=== PATIENT | male | born 1965 | race Caucasian/White ===

== ENCOUNTER 2019-01-12 13:26 | Emergency (ER) | payer BC ==
[2019-01-12 13:40] VITALS: BP 170/105; PULSE 75
[2019-01-12] MEDS ORDERED: Sodium Chloride 0.9% 1,000 ML IV SCH (14:00)
[2019-01-12] MEDS ORDERED: Sodium Chloride 0.9% 10 ML Syringe FLUSH PRN (14:00)
--- NOTE | 2019-01-12 14:33 | CR ---
Chest: Portable view of the chest was obtained. Comparison: Prior chest x-ray of 12/29/15. Heart size and mediastinum are normal. Lungs are clear. Bony structures appear grossly intact. Impression: 1. Nothing acute is identified on portable chest x-ray. Diagnostic code #1
--- NOTE | 2019-01-12 14:48 | EDM.PDOC ---
ED HPI GENERAL MEDICAL PROBLEM - General Chief Complaint: Chest Pain Stated Complaint: CHEST PAIN Time Seen by Provider: 01/12/19 13:37 Source of Information: Reports: Patient, RN Notes Reviewed - History of Present Illness INITIAL COMMENTS - FREE TEXT/NARRATIVE: 53-year-old male comes in after experiencing a near syncopal episode. States he was just walking at work when he felt "palpitations in his chest" and very intense discomfort bilateral posterior base of his neck with pain shooting down both arms. The discomfort lasted about 15 minutes or more, now on arrival to ED it is "almost gone" he also got extremely weak, lightheaded, dizzy, felt like he was about to pass out. No chest pressure tightness or heaviness. Mild shortness of breath briefly but that is gone. He had been feeling totally fine earlier today and also prior days and weeks. He does have history of hypertension. No known history for heart disease or diabetes. He has smoked cigarettes in the past but quit quite a long time ago. He does smoke an occasional cigar. He states he currently is "under a lot of stress" there is been no abdominal pain nausea or vomiting. He did not develop any speech difficulty, focal weakness or paralysis. 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: aspirin Bilateral Neck Pain Score (Numeric/FACES): 8 - Related Data Allergies Allergy/AdvReac Type Severity Reaction Status Date / Time cinnamon Allergy Cannot Verified 01/05/16 12:07 Remember fish oil Allergy Anaphylactic Verified 01/05/16 12:07 Shock iodine Allergy Anaphylactic Verified 01/05/16 12:07 Shock reuben Allergy Cannot Verified 01/05/16 12:07 Remember shellfish derived Allergy Anaphylactic Verified 01/05/16 12:07 Shock venom-honey bee Allergy Anaphylactic Verified 01/05/16 12:07 [bee venom (honey bee)] Shock Home Meds: Home Meds EPINEPHrine [Epipen 2-Ted] 1 dose IM ASDIRECTED PRN 12/12/15 [History] Flaxseed Oil [Flax Oil] 1,000 mg PO DAILY 12/12/15 [History] Ketotifen [Ketotifen 0.025% Ophth Soln] 1 drop EYEBOTH DAILY 12/12/15 [History] Plant Stanol Ondina [Cholest Off] 1 tab PO DAILY 08/25/16 [History] Aspirin 81 mg PO DAILY 01/12/19 [History] Atenolol 12.5 mg PO DAILY 01/12/19 [History] Past Medical History HEENT History: Reports: Impaired Vision, Other (See Below) Other HEENT History: wears glasses, 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 Then found out that he had allergies to shellfish, reuben, cinammon, seafood oil, and seasonal fall allergies. Cardiovascular History: Reports: Afib, High Cholesterol Respiratory History: Reports: Sleep Apnea Other Respiratory History: uses cpap Endocrine/Metabolic History: Reports: Obesity/BMI 30+ Hematologic History: Reports: Iron Deficiency Dermatologic History: Reports: Other (See Below) Other Dermatologic History: folliculitis - Past Surgical History Head Surgeries/Procedures: Reports: None HEENT Surgical History: Reports: LASIK GI Surgical History: Reports: Appendectomy, Colonoscopy Other GI Surgeries/Procedures: states bowels "are alittle slow" because "I haven 't been eating well". Musculoskeletal Surgical History: Reports: Other (See Below) Other Musculoskeletal Surgeries/Procedures:: several joint surgeries Social & Family History - Family History Cardiac: Reports: Afib, Aneurysm, Heart Murmur, PR Neurological: Reports: Alzheimers Disease Endocrine/Metabolic: Reports: Diabetes, Type I Oncologic: Reports: Breast - Tobacco Use Smoking Status *Q: Former Smoker Used Tobacco, but Quit: Yes Month/Year Tobacco Last Used: 2012 - Caffeine Use Caffeine Use: Reports: None Caffeine Use Comment: none since 2016 ED ROS GENERAL - Review of Systems Review Of Systems: See Below Constitutional: Reports: Diaphoresis (Gone). Denies: Fever, Chills HEENT: Denies: Throat Pain, Throat Swelling, Vertigo, Vision Change Respiratory: Reports: Shortness of Breath Cardiovascular: Reports: Lightheadedness (Gone gone), Palpitations. Denies: Chest Pain (Mild, gone) GI/Abdominal: Reports: Nausea. Denies: Abdominal Pain, Diarrhea, Vomiting (Mild , gone) Musculoskeletal: Reports: Neck Pain (Gone), Shoulder Pain (Mild ache), Arm Pain ( but almost gone). Denies: Back Pain ( gone ) Skin: Reports: Pallor, Diaphoresis. Denies: Rash Neurological: Reports: Dizziness. Denies: Trouble Speaking, Difficulty Walking , Weakness ED EXAM, GENERAL - Physical Exam Exam: See Below General Appearance: Alert, Anxious (Mild) Eye Exam: Bilateral Eye: PERRL Throat/Mouth: Normal Inspection, Normal Oropharynx Head: Atraumatic. No: Facial Swelling Neck: Supple, Full Range of Motion, Other. No: Lymphadenopathy (L), Lymphadenopathy (R) Respiratory/Chest: No Respiratory Distress (No JVD), Lungs Clear, Normal Breath Sounds Cardiovascular: Regular Rate, Rhythm GI/Abdominal: Soft, Non-Tender Back Exam: No: CVA Tenderness (L), CVA Tenderness (R) Extremities: Normal Inspection, Normal Range of Motion Neurological: Alert, Oriented, No Motor/Sensory Deficits Skin Exam: Warm, Dry, Normal Color EKG INTERPRETATION EKG Date: 01/12/19 Rhythm: NSR [place]: Normal P-Wave: Present QRS: Normal ST-T: Other (There are T wave inversions in lead 3 inferiorly, no visible ST elevation or depression) Course - Vital Signs Last Recorded V/S: Last Vital Signs Temp 98.2 F 01/12/19 13:35 Pulse 75 01/12/19 13:35 Resp 26 H 01/12/19 13:35 BP 170/105 H 01/12/19 13:35 Pulse Ox 94 L 01/12/19 13:35 - Orders/Labs/Meds Orders: Active Orders 24 hr Category Date Time Status EKG 12 Lead [EKG Documentation Completion] [RC] STAT Care 01/12/19 13:45 Active EKG 12 Lead [EKG Documentation Completion] [RC] STAT Care 01/12/19 13:59 Inactive EKG 12 Lead [EKG Documentation Completion] [RC] STAT Care 01/12/19 16:33 Active Peripheral IV Care [RC] . DIRECTED Care 01/12/19 14:00 Active Peripheral IV Insertion Adult [OM.PC] Stat Oth 01/12/19 14:00 Ordered Labs: Laboratory Tests 01/12/19 01/12/19 01/12/19 Range/Units 14:07 14:07 14:07 WBC 8.26 (4.23-9.07) K/mm3 RBC 5.11 (4.63-6.08) M/mm3 Hgb 16.0 (13.7-17.5) gm/dl Hct 47.0 (40.1-51.0) % MCV 92.0 (79.0-92.2) fl MCH 31.3 (25.7-32.2) pg MCHC 34.0 (32.2-35.5) g/dl RDW Std Deviation 49.7 H (35.1-43.9) fL Plt Count 275 D (163-337) K/mm3 MPV 10.2 (9.4-12.3) fl Neut % (Auto) 59.0 (34.0-67.9) % Lymph % (Auto) 30.8 (21.8-53.1) % [place] % (Auto) 7.0 (5.3-12.2) % Eos % (Auto) 2.8 (0.8-7.0) Baso % (Auto) 0.2 (0.1-1.2) % Neut # (Auto) 4.87 (1.78-5.38) K/mm3 Lymph # (Auto) 2.54 (1.32-3.57) K/mm3 [place] # (Auto) 0.58 (0.30-0.82) K/mm3 Eos # (Auto) 0.23 (0.04-0.54) K/mm3 Baso # (Auto) 0.02 (0.01-0.08) K/mm3 D-Dimer, Quantitative 0.70 H (0.19-0.50) mg/L Sodium 138 (136-145) mEq/L Potassium 3.7 (3.5-5.1) mEq/L Chloride 103 (98-107) mEq/L Carbon Dioxide 25 (21-32) mEq/L Anion Gap 13.7 (5-15) BUN 17 (7-18) mg/dL Creatinine 0.9 (0.7-1.3) mg/dL Est Cr Clr Drug Dosing 92.74 mL/min Estimated GFR (MDRD) > 60 (>60) mL/min BUN/Creatinine Ratio 18.9 H (14-18) Glucose 144 H (74-106) mg/dL Calcium 9.1 (8.5-10.1) mg/dL Total Bilirubin 0.4 (0.2-1.0) mg/dL AST 15 (15-37) U/L ALT 29 (16-63) U/L Alkaline Phosphatase 75 (46-116) U/L Troponin I 0.029 (0.00-0.056) ng/mL Total Protein 7.9 (6.4-8.2) g/dl Albumin 4.0 (3.4-5.0) g/dl Globulin 3.9 gm/dL Albumin/Globulin Ratio 1.0 (1-2) 01/12/19 Range/Units 16:36 WBC (4.23-9.07) K/mm3 RBC (4.63-6.08) M/mm3 Hgb (13.7-17.5) gm/dl Hct (40.1-51.0) % MCV (79.0-92.2) fl MCH (25.7-32.2) pg MCHC (32.2-35.5) g/dl RDW Std Deviation (35.1-43.9) fL Plt Count (163-337) K/mm3 MPV (9.4-12.3) fl Neut % (Auto) (34.0-67.9) % Lymph % (Auto) (21.8-53.1) % [place] % (Auto) (5.3-12.2) % Eos % (Auto) (0.8-7.0) Baso % (Auto) (0.1-1.2) % Neut # (Auto) (1.78-5.38) K/mm3 Lymph # (Auto) (1.32-3.57) K/mm3 [place] # (Auto) (0.30-0.82) K/mm3 Eos # (Auto) (0.04-0.54) K/mm3 Baso # (Auto) (0.01-0.08) K/mm3 D-Dimer, Quantitative (0.19-0.50) mg/L Sodium (136-145) mEq/L Potassium (3.5-5.1) mEq/L Chloride (98-107) mEq/L Carbon Dioxide (21-32) mEq/L Anion Gap (5-15) BUN (7-18) mg/dL Creatinine (0.7-1.3) mg/dL Est Cr Clr Drug Dosing mL/min Estimated GFR (MDRD) (>60) mL/min BUN/Creatinine Ratio (14-18) Glucose (74-106) mg/dL Calcium (8.5-10.1) mg/dL Total Bilirubin (0.2-1.0) mg/dL AST (15-37) U/L ALT (16-63) U/L Alkaline Phosphatase (46-116) U/L Troponin I 0.041 (0.00-0.056) ng/mL Total Protein (6.4-8.2) g/dl Albumin (3.4-5.0) g/dl Globulin gm/dL Albumin/Globulin Ratio (1-2) Meds: Medications Discontinued Medications Generic Name Dose Route Start Last Admin Trade Name Freq PRN Reason Stop Dose Admin Sodium Chloride 1,000 mls @ 999 mls/hr 01/12/19 14:00 01/12/19 14:13 Normal Saline IV 999 mls/hr ONETIME KEDAR Administration Lactated Ringer's Confirm 01/12/19 15:48 01/12/19 15:58 Ringers, Lactated Administered 01/12/19 15:49 Not Given Dose 1,000 mls @ as directed .ROUTE .STK-MED ONE Lactated Ringer's 1,000 mls @ 75 mls/hr 01/12/19 16:00 01/12/19 15:58 Ringers, Lactated IV 75 mls/hr ASDIRECTED KEDAR Administration Nitroglycerin/Dextrose 25 mg in 250 mls @ 3 mls/hr 01/12/19 18:15 01/12/19 18 :27 Nitroglycerin 25 Mg/D5w 250 Ml IV 5 mcg/min TITRATE KEDAR 3 mls/hr Administration Protocol 5 MCG/MIN Sodium Chloride 10 ml 01/12/19 14:00 01/12/19 14:13 Saline Flush FLUSH 10 ml ASDIRECTED PRN Administration Keep Vein Open - Re-Assessments/Exams Free Text/Narrative Re-Assessment/Exam: 01/12/19 15:00. Initial troponin did come back very slightly elevated .029. Will check D dimer and also check a 3 hr trop. He is resting comfortably, vitals remain stable. 01/12/19 17:52. Repeat troponin has come back further elevated at 0.041. His d- dimer did come back at 0.70. Sats have remained stable in the 96-98% range. He has not been tachycardic or short of breath. If his symptoms were secondary to PE I would suspect that he would also have at least some symptoms of dyspnea, tachycardia or pleuritic chest discomfort none of which have been present while here in the ED. Therefore I'm not going to pursue CT pulmonary angiogram at this time. He did have one further episode of R arm discomfort. We did repeat an EKG at that time which was unchanged from EKG on arrival. I have discussed this with Dr. Da Silva, Mobile Device Engineer who does agree that patient should be transferred for further work up. His blood pressure had been running in the 130s and 140s but most recent reading went up to 166/94. He also did now start developing a mild ache left lower anterior chest the lower rib margin. She does recommend we go ahead and start a nitro drip. That has been ordered. An ambulance is here ready for transfer at this time. Departure - Departure Time of Disposition: 18:00 Disposition: DC/Tfer to Acute Hospital 02 Reason for Transfer *Q: Other Clinical Impression: Atypical chest pain, Elevated troponin, Near syncope Referrals: Anderson Daniels MD [Primary Care Provider] - Forms: ED Department Discharge - My Orders Last 24 Hours: My Active Orders 01/12/19 13:45 EKG 12 Lead [EKG Documentation Completion] [RC] STAT 01/12/19 13:59 EKG 12 Lead [EKG Documentation Completion] [RC] STAT 01/12/19 14:00 Peripheral IV Care [RC] . DIRECTED Peripheral IV Insertion Adult [OM.PC] Stat 01/12/19 16:33 EKG 12 Lead [EKG Documentation Completion] [RC] STAT - Assessment/Plan Last 24 Hours: My Active Orders 01/12/19 13:45 EKG 12 Lead [EKG Documentation Completion] [RC] STAT 01/12/19 13:59 EKG 12 Lead [EKG Documentation Completion] [RC] STAT 01/12/19 14:00 Peripheral IV Care [RC] . DIRECTED Peripheral IV Insertion Adult [OM.PC] Stat 01/12/19 16:33 EKG 12 Lead [EKG Documentation Completion] [RC] STAT
[2019-01-12] MEDS ORDERED: Lactated Ringers 1,000 ML ONE (15:48)
[2019-01-12] MEDS ORDERED: Lactated Ringers 1,000 ML IV SCH (16:00)
[2019-01-12] MEDS ORDERED: Nitroglycerin/D5W 25 MG/250 ML BOTTLE IV SCH (18:15)
== END 2019-01-12 18:40 ==
LOC: JD.ED 13:26
DX: R07.89 Other chest pain (principal); R55 Syncope and collapse; R79.89 Other specified abnormal findings of blood chemistry; E10.9 Type 1 diabetes mellitus without complications; G30.9 Alzheimer's disease, unspecified; F02.80 Dementia in other diseases classified elsewhere, unspecified severity, without behavioral disturbance, psychotic disturbance, mood disturbance, and anxiety; I25.2 Old myocardial infarction; F17.290 Nicotine dependence, other tobacco product, uncomplicated; E66.9 Obesity, unspecified; Z79.899 Other long term (current) drug therapy; Z91.030 Bee allergy status; Z91.013 Allergy to seafood; Z91.018 Allergy to other foods; Z91.041 Radiographic dye allergy status; Z68.33 Body mass index [BMI] 33.0-33.9, adult
CPT/HCPCS: 36415; 71045; 80053; 84484; 85025; 85379; 93005; 96361; 96374; 99285; J3490; J7040; J7120

== ENCOUNTER 2019-01-17 18:26 | Emergency (ER) | payer BC ==
--- NOTE | 2019-01-17 19:39 | EDM.PDOC ---
ED HPI GENERAL MEDICAL PROBLEM - General Chief Complaint: Neuro Symptoms/Deficits Stated Complaint: CHEST PAIN/FELL Time Seen by Provider: 01/17/19 19:34 Source of Information: Reports: Patient History Limitations: Reports: No Limitations - History of Present Illness INITIAL COMMENTS - FREE TEXT/NARRATIVE: 53-year-old male presents to the ED generally not feeling well. 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 However he stepped down from the ladder and suddenly lost his balance felt the world was spinning somewhat and fell to the floor backwards. He was new he'll use Benadryl hit the floor and therefore let himself go fairly easily without hurting himself. After this he walked out of the house and was brushing off drywall dust from his pants and he lost his balance again going forward landing on her stretched hands. At no time did he lose consciousness completely. This is associated with a feeling of dry mouth and to some degree some palpitations suggesting that he is exhibiting short bouts of rapid paroxysmal atrial fibrillation which she has been treated for for the last 4 years. He was done in [place] under investigation last and Wednesday rule out DE ruled out PE and ruled out any stroke. On the treadmill test apparently his heart rate went up into the 180s and the treadmill stress test was stopped. He remains on atenolol 25 mg once daily. He has no medication as atorvastatin or Lipitor 40 mg daily. He states all of his muscles are aching since starting the atorvastatin he just felt generally feels weak and tired and ill. He states normally he is the conjunctiva gets up and goes 90 miles an hour and suddenly is unable to do so. He has appreciated increased tinnitus in both ears for several months but no real problems with vertigo in the past. No nausea no vomiting mild headache at this time patient appears flushed and warm to palpation but denies feeling any fever or chills. Port temperature 37.7. Onset: Today Onset Date: 01/17/19 Onset Time: 18:00 Duration: Minutes: Location: Reports: Generalized (Sense of being off balance near syncope 3 where he fell to the ground. Once was up onto his back and buttocks and once he fell forward onto outstretched hands. It appears that he is getting sudden drops in his blood pressure and he believes that he can feel his heart racing when this occurs.) Quality: Reports: Same as Previous Episode Severity: Moderate Improves with: Reports: None Worsens with: Reports: Other Context: Reports: Other. Denies: Activity, Exercise (Nothing seems to make it worse or better. It just occurs spontaneously and rapidly.), Lifting, Sick Contact, Trauma Associated Symptoms: Reports: Confusion (Spontaneous occurrence), Headaches, Loss of Appetite, Malaise, Shortness of Breath, Weakness, Other (Dry mouth). 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 (see below) (Only his current medications.) - Related Data Allergies Allergy/AdvReac Type Severity Reaction Status Date / Time cinnamon Allergy Cannot Verified 01/17/19 18:42 Remember fish oil Allergy Anaphylactic Verified 01/17/19 18:42 Shock iodine Allergy Anaphylactic Verified 01/17/19 18:42 Shock reuben Allergy Cannot Verified 01/17/19 18:42 Remember shellfish derived Allergy Anaphylactic Verified 01/17/19 18:42 Shock venom-honey bee Allergy Anaphylactic Verified 01/17/19 18:42 [bee venom (honey bee)] Shock Home Meds: Home Meds EPINEPHrine [Epipen 2-Ted] 1 dose IM ASDIRECTED PRN 12/12/15 [History] Aspirin 81 mg PO DAILY 01/12/19 [History] Atenolol 25 mg PO DAILY 01/12/19 [History] Lantanoprost. 1 drop EYEBOTH DAILY 01/17/19 [History] Levothyroxine 125 mcg PO ACBREAKFAST #30 tab 01/17/19 [Rx] Meclizine HCl 25 mg PO Q8H #14 tab.chew 01/17/19 [Rx] atorvaSTATin [Lipitor] 40 mg PO DAILY 01/17/19 [History] Past Medical History HEENT History: Reports: Impaired Vision, Other (See Below) Other HEENT History: wears glasses, 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 Then found out that he had allergies to shellfish, reuben, cinammon, seafood oil, and seasonal fall allergies. Cardiovascular History: Reports: Afib, High Cholesterol Respiratory History: Reports: Sleep Apnea Other Respiratory History: uses cpap Endocrine/Metabolic History: Reports: Obesity/BMI 30+ Hematologic History: Reports: Iron Deficiency Dermatologic History: Reports: Other (See Below) Other Dermatologic History: folliculitis - Past Surgical History Head Surgeries/Procedures: Reports: None HEENT Surgical History: Reports: LASIK GI Surgical History: Reports: Appendectomy, Colonoscopy Other GI Surgeries/Procedures: states bowels "are alittle slow" because "I haven 't been eating well". Musculoskeletal Surgical History: Reports: Other (See Below) Other Musculoskeletal Surgeries/Procedures:: several joint surgeries Social & Family History - Family History Cardiac: Reports: Afib, Aneurysm, Heart Murmur, DE Neurological: Reports: Alzheimers Disease Endocrine/Metabolic: Reports: Diabetes, Type I Oncologic: Reports: Breast - Tobacco Use Smoking Status *Q: Never Smoker Tobacco Use Within Last Twelve Months: Cigars (Occasional smoke some cigars.) - Caffeine Use Caffeine Use: Reports: None Caffeine Use Comment: none since 2016 - Recreational Drug Use Recreational Drug Use: No - Living Situation & Occupation Living situation: Reports: Occupation: Employed ED ROS GENERAL - Review of Systems Review Of Systems: See Below Constitutional: Reports: Malaise, Weakness, Fatigue, Decreased Appetite. Denies : Fever, Chills, Weight Loss HEENT: Reports: Vertigo Respiratory: Reports: Shortness of Breath (Sense of being off balance at times with associated tinnitus.). Denies: Wheezing, Pleuritic Chest Pain, Cough, Sputum, Hemoptysis Cardiovascular: Reports: Lightheadedness, Palpitations (Near syncope 2 today with falls to the ground.), Syncope. Denies: Chest Pain, Blood Pressure Problem , Claudication, Dyspnea on Exertion, Edema, Orthopnea Endocrine: Reports: Fatigue GI/Abdominal: Reports: No Symptoms : Reports: No Symptoms Musculoskeletal: Reports: Joint Pain (Knees hips low back at times.) Skin: Reports: No Symptoms Neurological: Reports: Dizziness, Headache, Syncope, Difficulty Walking (Near syncope with falls to the ground 3 today.), Weakness. Denies: Numbness, Paresthesia, Pre-Existing Deficit ( When this symptoms occur.), Tingling (Mild headache at this time), Tremors, Trouble Speaking, Change in Speech, Gait Disturbance, Other Psychiatric: Reports: Anxiety Hematologic/Lymphatic: Reports: No Symptoms Immunologic: Reports: No Symptoms ED EXAM, NEURO - Physical Exam Exam: See Below Exam Limited By: No Limitations General Appearance: Alert, WD/WN, Mild Distress, Other (Mildly anxious as one would expect. Temperature is 37.7 mildly elevated. Also 69% sinus respiratory is 22 BP is 158/87 . Pulse ox is 96.) Eye Exam: Bilateral Eye: Normal Inspection, PERRL (No nystagmus) Ears: Normal TMs Throat/Mouth: Normal Inspection, Normal Lips, Normal Teeth, Normal Oropharynx, Other (Uvula is in the midline.) Head Exam: Atraumatic, Normocephalic Neck: Normal Inspection, Supple, Non-Tender, Full Range of Motion. No: Carotid Bruit, Lymphadenopathy (L), Lymphadenopathy (R) Respiratory/Chest: No Respiratory Distress, Lungs Clear, Normal Breath Sounds, No Accessory Muscle Use, Chest Non-Tender Cardiovascular: Normal Peripheral Pulses, Regular Rate, Rhythm, No Edema, No Gallop, No Murmur, No Rub, Other (When I was listening to him he went into rapid atrial fib lasting about 2 seconds.) GI/Abdominal: Normal Bowel Sounds, Soft, Non-Tender, No Organomegaly, No Abnormal Bruit, No Mass, Pelvis Stable Neurological: Alert, Normal Mood/Affect, Normal Dorsiflexion, CN II-XII Intact, Normal Plantar Flexion, Normal Gait, Normal Reflexes, No Motor/Sensory Deficits , Oriented x 3 Extremities: Normal Inspection, Normal Range of Motion, Non-Tender, No Pedal Edema, Normal Capillary Refill, Other (He feels tenderness in his forearms and legs.) Psychiatric: Anxious Skin Exam: Warm, Dry, Intact, Normal Color, No Rash, Other (His face is erythematous and he does feel warm to palpation. Nurses record temperature 37.7. ) EKG INTERPRETATION EKG Date: 01/17/19 Time: 20:05 Rhythm: Other Rate (Beats/Min): 57 [place]: Normal P-Wave: Present QRS: Other (Decreased voltage precordial leads. Initial poor R-wave progression. ) ST-T: Other (Borderline T-wave changes numerous leads. T-wave inversion in leads 3 and aVF nonspecific.) QT: Normal EKG Interpretation Comments: Borderline ECG Course - Vital Signs Last Recorded V/S: Last Vital Signs Temp 36.2 C 01/17/19 21:50 Pulse 57 L 01/17/19 21:50 Resp 16 01/17/19 21:50 BP 138/84 01/17/19 21:50 Pulse Ox 98 01/17/19 21:50 Orthostatic Blood Pressure [ 130/84 Standing] Orthostatic Blood Pressure [ 133/76 Supine] - Orders/Labs/Meds Orders: Active Orders 24 hr Category Date Time Status EKG Documentation Completion [RC] STAT Care 01/17/19 19:34 Active Holter Monitor 48 Hours [RC] .PRN Care 01/17/19 22:08 Active Labs: Laboratory Tests 01/17/19 01/17/19 01/17/19 Range/Units 19:57 19:57 19:57 WBC 10.26 H (4.23-9.07) K/mm3 RBC 4.85 (4.63-6.08) M/mm3 Hgb 15.7 (13.7-17.5) gm/dl Hct 44.7 (40.1-51.0) % MCV 92.2 (79.0-92.2) fl MCH 32.4 H (25.7-32.2) pg MCHC 35.1 (32.2-35.5) g/dl RDW Std Deviation 48.9 H (35.1-43.9) fL Plt Count 264 (163-337) K/mm3 MPV 10.6 (9.4-12.3) fl Neut % (Auto) 48.4 (34.0-67.9) % Lymph % (Auto) 39.0 (21.8-53.1) % [place] % (Auto) 8.4 (5.3-12.2) % Eos % (Auto) 4.0 (0.8-7.0) Baso % (Auto) 0.2 (0.1-1.2) % Neut # (Auto) 4.97 (1.78-5.38) K/mm3 Lymph # (Auto) 4.00 H (1.32-3.57) K/mm3 [place] # (Auto) 0.86 H (0.30-0.82) K/mm3 Eos # (Auto) 0.41 (0.04-0.54) K/mm3 Baso # (Auto) 0.02 (0.01-0.08) K/mm3 Manual Slide Review Sodium 136 (136-145) mEq/L Potassium 3.9 (3.5-5.1) mEq/L Chloride 103 (98-107) mEq/L Carbon Dioxide 26 (21-32) mEq/L Anion Gap 10.9 (5-15) BUN 18 (7-18) mg/dL Creatinine 0.9 (0.7-1.3) mg/dL Est Cr Clr Drug Dosing 92.74 mL/min Estimated GFR (MDRD) > 60 (>60) mL/min BUN/Creatinine Ratio 20.0 H (14-18) Glucose 103 (74-106) mg/dL Calcium 9.1 (8.5-10.1) mg/dL Magnesium 1.8 (1.8-2.4) mg/dl Total Bilirubin 0.2 (0.2-1.0) mg/dL AST 16 (15-37) U/L ALT 30 (16-63) U/L Alkaline Phosphatase 84 (46-116) U/L Creatine Kinase 77 (39-308) U/L Troponin I 0.027 (0.00-0.056) ng/mL C-Reactive Protein < 0.2 (<1.0) mg/dL NT-Pro-B Natriuret Pep 74 (0-125) pg/mL Total Protein 7.9 (6.4-8.2) g/dl Albumin 4.0 (3.4-5.0) g/dl Globulin 3.9 gm/dL Albumin/Globulin Ratio 1.0 (1-2) TSH 3rd Generation 7.136 H (0.358-3.74) uIU/mL Urine Color (Yellow) Urine Appearance (Clear) Urine pH (5.0-8.0) Ur Specific [place] (1.005-1.030) Urine Protein (Negative) Urine Glucose (UA) (Negative) Urine Ketones (Negative) Urine Occult Blood (Negative) Urine Nitrite (Negative) Urine Bilirubin (Negative) Urine Urobilinogen (0.2-1.0) Ur Leukocyte Esterase (Negative) Urine RBC (0-5) /hpf Urine WBC (0-5) /hpf Ur Squamous Epith Cells (0-5) /hpf Urine Bacteria (FEW) /hpf Urine Mucus (FEW) /hpf 01/17/19 Range/Units 20:19 WBC (4.23-9.07) K/mm3 RBC (4.63-6.08) M/mm3 Hgb (13.7-17.5) gm/dl Hct (40.1-51.0) % MCV (79.0-92.2) fl MCH (25.7-32.2) pg MCHC (32.2-35.5) g/dl RDW Std Deviation (35.1-43.9) fL Plt Count (163-337) K/mm3 MPV (9.4-12.3) fl Neut % (Auto) (34.0-67.9) % Lymph % (Auto) (21.8-53.1) % [place] % (Auto) (5.3-12.2) % Eos % (Auto) (0.8-7.0) Baso % (Auto) (0.1-1.2) % Neut # (Auto) (1.78-5.38) K/mm3 Lymph # (Auto) (1.32-3.57) K/mm3 [place] # (Auto) (0.30-0.82) K/mm3 Eos # (Auto) (0.04-0.54) K/mm3 Baso # (Auto) (0.01-0.08) K/mm3 Manual Slide Review Sodium (136-145) mEq/L Potassium (3.5-5.1) mEq/L Chloride (98-107) mEq/L Carbon Dioxide (21-32) mEq/L Anion Gap (5-15) BUN (7-18) mg/dL Creatinine (0.7-1.3) mg/dL Est Cr Clr Drug Dosing mL/min Estimated GFR (MDRD) (>60) mL/min BUN/Creatinine Ratio (14-18) Glucose (74-106) mg/dL Calcium (8.5-10.1) mg/dL Magnesium (1.8-2.4) mg/dl Total Bilirubin (0.2-1.0) mg/dL AST (15-37) U/L ALT (16-63) U/L Alkaline Phosphatase (46-116) U/L Creatine Kinase (39-308) U/L Troponin I (0.00-0.056) ng/mL C-Reactive Protein (<1.0) mg/dL NT-Pro-B Natriuret Pep (0-125) pg/mL Total Protein (6.4-8.2) g/dl Albumin (3.4-5.0) g/dl Globulin gm/dL Albumin/Globulin Ratio (1-2) TSH 3rd Generation (0.358-3.74) uIU/mL Urine Color Light yellow (Yellow) Urine Appearance Clear (Clear) Urine pH 6.5 (5.0-8.0) Ur Specific [place] 1.010 (1.005-1.030) Urine Protein Negative (Negative) Urine Glucose (UA) Negative (Negative) Urine Ketones Negative (Negative) Urine Occult Blood 1+ H (Negative) Urine Nitrite Negative (Negative) Urine Bilirubin Negative (Negative) Urine Urobilinogen 0.2 (0.2-1.0) Ur Leukocyte Esterase Negative (Negative) Urine RBC Not seen (0-5) /hpf Urine WBC Not seen (0-5) /hpf Ur Squamous Epith Cells Not seen (0-5) /hpf Urine Bacteria Occasional (FEW) /hpf Urine Mucus Few (FEW) /hpf Meds: Medications Discontinued Medications Generic Name Dose Route Start Last Admin Trade Name Freq PRN Reason Stop Dose Admin Dextrose/Sodium Chloride 1,000 mls @ 150 mls/hr 01/17/19 19:45 01/17/19 20:29 Dextrose 5%-Normal Saline IV 150 mls/hr ASDIRECTED KEDAR Administration Levothyroxine Sodium 100 mcg 01/17/19 22:08 01/17/19 22:34 Synthroid PO 01/17/19 22:09 100 mcg ONETIME ONE Administration Meclizine HCl 25 mg 01/17/19 22:08 01/17/19 22:33 Antivert PO 01/17/19 22:09 25 mg ONETIME ONE Administration - Radiology Interpretation Free Text/Narrative:: 53-year-old male presents to the ED with 2 bouts if not 3 bouts of essentially near syncopal events where he has fallen to the floor fallen to the ground today. He came down from a ladder after working up on the ladder doing sheet rocking and fell backwards while she is balance. He states the room seems to spin and becomes dizzy and lightheaded. This also occurred when he bent over to brush the she recognized off his clothing any fell forward onto outstretched hands. He has never lost consciousness he seems to be exhibiting more of a balance problem. He appreciates tinnitus in his ears that is getting worse over the last several months and mild hearing loss. Been fully investigated last week in [place] due to paroxysmal mitral fibrillation which she suffered from for the last 4 years. He had no medication change other than the addition of atorvastatin 40 mg once daily to his treatment plan. Remains on atenolol 25 mg once daily. This is work well in the past to control his atrial fibrillation. He is aware that his heart seems to be skipping and racing at times i.e. paroxysmal mitral. I got one bout of this on examination of the lasting about 2 seconds. [place] that his heart is causing his presyncopal events versus vertigo -like episodes. Neuro exam is completely normal. Plan CT head. IV will be D5 normal saline at 150 mils per hour. ECG will be done. We'll see if we can monitor and to catch any further paroxysmal atrial fib. Also appears to be mildly warm to palpation question low-grade fever. Will not be done at this time since he has no symptoms. He just had a chest x-ray in [place] with the last 5 days. Denies any dysuria urgency or frequency. - Re-Assessments/Exams Free Text/Narrative Re-Assessment/Exam: 01/17/19 21:55 CT head is completely within normal limits.Labs reveal a normal white count at 10.26 differential shows 48% neutrophils. Hemoglobin is 15.7 with hematocrit of 44.7. Platelet count is 2 64,000. Sodium is 136 with a potassium of 3.9. Chloride is normal through the bicarbonate 26. And a gap is 10.9. BUN is 18 with a creatinine of 0.9. GFR remains greater than 60. Glucose is 103. Calcium is 9.1. Magnesium 1.8. Liver function normal. Total CPK is 77. Troponin I is less than 0.027. C-reactive protein less than 0.2. BNP is 74. Total protein is 7.9 TSH is elevated at 7.136. Will call blood is 1+ in the urine but otherwise no signs of infection. 01/17/19 22:15: Discussed the findings with the patient. And is hypothyroid with a TSH of 7.136. I will order a free T4 and free T3 as well. This likely is the cause of his symptom complex since he is complaining of fatigue for many months following the in the head. Aching in his muscles dyspnea on exertion. It is also likely the reason that his cholesterol was elevated. I've discussed with him to stop the atorvastatin for now and possibly will need to resume this in 34 months once his thyroid function is stabilizing on the right dose he may find that his cholesterol is back to normal he would do will not need cholesterol-lowering medication. He is neat not keen on taking it at this time. He would not tolerate any further dosage adjustment of his atenolol as he has a persistent sinus bradycardia in the upper 50s and his blood pressure is also low normal. By history he is developing vertiginous attacks where he is spinning and moving not the room. This appears to be the cause of him falling repeatedly today. The quad problem I have is also aware of palpitations and I cannot be sure that he is not getting intermittent severe paroxysmal atrial fibrillation over 200 beats a minute which would make him fall as well. I'm therefore going to place him in a Holter monitor for the next 48 hours to [place] capture any abnormal rhythms. He has no nystagmus and CT of his brain was normal. I will place him on meclizine 25 mg every 8 hours for the next 5 days with first tablet given in the ED. I'm going to go ahead and start him on levothyroxine supplement 125 g daily for the next [address] Noe will check his thyroid function and see if we need to adjust upwards. Patient will take the next day or 2 off of work and rest up. He has no fremitus see Dr. Marquez on this week. he is to keep this appointment. Departure - Departure Time of Disposition: 22:10 Disposition: Home, Self-Care 01 Condition: Fair Clinical Impression: Vertigo, Paroxysmal atrial fibrillation Benign paroxysmal positional vertigo Qualifiers: Laterality: unspecified laterality Qualified Code(s): H81.10 - Benign paroxysmal vertigo, unspecified ear Hypothyroidism Qualifiers: Hypothyroidism type: acquired Qualified Code(s): E03.9 - Hypothyroidism, unspecified - Discharge Information *PRESCRIPTION DRUG MONITORING PROGRAM REVIEWED*: Not Applicable *COPY OF PRESCRIPTION DRUG MONITORING REPORT IN PATIENT LEO: Not Applicable Prescriptions: Levothyroxine 125 mcg PO ACBREAKFAST #30 tab Meclizine HCl 25 mg PO Q8H #14 tab.chew Instructions: Benign Positional Vertigo Referrals: Anderson Daniels MD [Primary Care Provider] - Forms: ED Department Discharge, ED Return to Work/School Form Additional Instructions: Evaluation the emergency room today in regards to falling 2 or 3 times a day due to loss of balance. Fell once backwards completely on but talks to loss of balance and then fell forwards onto outstretched hands. It appears that you're suffering from benign positional vertigo which is a problem with the middle ear balance mechanism. On examination I could not tell which side was affected. As you identified you feel like you were moving not the room spinning. Treatment for this is Antivert or meclizine 25 mg every 8 hours for the next 5 days to try and bring it under control. The vertigo may be secondary to hypothyroidism which were diagnosed with today. This may cut be causing dysfunction of the balance mechanism and should improve over the next week as thyroid hormone level start to come up with treatment. You need to take a thyroid supplement called levothyroxin 125 g once daily at least for the next 6 weeks and then we will recheck the thyroid hormones and see if we have reached appropriate dose. Most men require between 125 and 150 g per day. This is likely responsible for your overwhelming fatigue and muscle weakness shortness of breath etc. that has been coming on for a lengthy period of time. The other problem however is you have a history of paroxysmal atrial fibrillation and are aware that her heart is skipping beats recently. Suggest wearing a Holter monitor for the next 48 hours to see we can clam picker what is going on with the heart. Placed her [place] in 48 hours and the report will go to Dr. Marquez once it is available. This time no changes are to be made to your atenolol it should stay 25 mg per day as your blood pressure and heart rate are already on the low side of normal on this medication. Follow-up with Dr. Marquez on as planned. It is my suggestion that you place your cholesterol-lowering medication on hold for now and see if it does not correct itself once her thyroid is corrected in 3 months time. Not then you can resume it in 3 months time. This will be up up to Dr. Marquez. - My Orders Last 24 Hours: My Active Orders 01/17/19 19:34 EKG Documentation Completion [RC] STAT 01/17/19 22:08 Holter Monitor 48 Hours [RC] .PRN - Assessment/Plan Last 24 Hours: My Active Orders 01/17/19 19:34 EKG Documentation Completion [RC] STAT 01/17/19 22:08 Holter Monitor 48 Hours [RC] .PRN
[2019-01-17] MEDS ORDERED: Dextrose 5%-0.9% NaCl 1,000 ML IV SCH (19:45)
--- NOTE | 2019-01-17 20:59 | CT ---
Head CT Technique: Multiple axial sections through the brain were obtained. Intravenous contrast was not utilized. Comparison: No prior intracranial imaging is available. Findings: Ventricles along with basal cisterns and sulci over the convexities are within normal limits for the patient's age. No abnormal parenchymal densities are seen. No evidence of intracranial hemorrhage. No midline shift or mass effect is seen. Bone window settings were reviewed which shows scattered areas of mucosal thickening within the frontal and ethmoid sinuses as well as sphenoid sinus. No air-fluid levels are seen. No acute calvarial abnormality is seen. Visualized mastoid sinuses show minimal mucosal thickening inferiorly. Impression: 1. Sinus findings which are most likely chronic as described above. 2. No acute intracranial abnormality is appreciated. Diagnostic code #2
[2019-01-17 21:51] VITALS: BP 138/84; PULSE 57
[2019-01-17] MEDS ORDERED: Levothyroxine 100 MCG Tab PO ONE (22:08)
== END 2019-01-17 22:45 | disposition home or self-care (01) ==
LOC: JD.ED 18:26
DX: I48.0 Paroxysmal atrial fibrillation (principal); H81.10 Benign paroxysmal vertigo, unspecified ear; E03.9 Hypothyroidism, unspecified; E66.9 Obesity, unspecified; E78.00 Pure hypercholesterolemia, unspecified; Z91.013 Allergy to seafood; Z98.890 Other specified postprocedural states; Z91.018 Allergy to other foods; Z88.8 Allergy status to other drugs, medicaments and biological substances; Z91.030 Bee allergy status; Z79.899 Other long term (current) drug therapy; Z79.82 Long term (current) use of aspirin; Z68.31 Body mass index [BMI] 31.0-31.9, adult
CPT/HCPCS: 36415; 70450; 80053; 81001; 82550; 83735; 83880; 84439; 84443; 84481; 84484; 85025; 86140; 93005; 93225; 93226; 96360; 96361; 99284; A9270; J7042; 93010

== ENCOUNTER 2022-04-02 20:07 | Emergency (ER) | payer BC ==
[2022-04-02] MEDS ORDERED: Sodium Chloride 0.9% 10 ML Syringe FLUSH PRN (20:52)
[2022-04-02] MEDS ORDERED: Aspirin 81 MG Tab.Chew PO ONE (20:52)
[2022-04-02] MEDS ORDERED: methylPREDNISolone Sodium Succinate 125 MG/2 ML SDV IVPUSH ONE (21:53)
[2022-04-02] MEDS ORDERED: Famotidine 20 MG/2 ML SDV IVPUSH ONE (21:53)
[2022-04-02] MEDS ORDERED: diphenhydrAMINE 50 MG/ML SDV IVPUSH ONE (21:53)
[2022-04-02] MEDS ORDERED: EPINEPHrine 1 MG/ML SDV IM ONE ×2 (22:06)
[2022-04-02] MEDS ORDERED: fentaNYL 100 MCG/2 ML SDV IVPUSH ONE (22:15)
[2022-04-02] MEDS ORDERED: Iopamidol 755 Mg/ML 100 ML Bottle IVPUSH ONE (23:11)
[2022-04-03] MEDS ORDERED: Diltiazem IR 30 MG Tab PO ONE (00:59)
[2022-04-03 02:17] VITALS: BP 124/81; PULSE 67
== END 2022-04-03 02:17 | disposition home or self-care (01) ==
LOC: JD.ED 20:07
DX: I48.92 Unspecified atrial flutter (principal); E66.9 Obesity, unspecified; Z68.32 Body mass index [BMI] 32.0-32.9, adult; Z88.5 Allergy status to narcotic agent; Z91.013 Allergy to seafood; Z91.030 Bee allergy status; Z79.82 Long term (current) use of aspirin; Z79.899 Other long term (current) drug therapy; Z90.49 Acquired absence of other specified parts of digestive tract
CPT/HCPCS: 36415; 71045; 71275; 80053; 83735; 84443; 84484; 85025; 85379; 85610; 93005; 93246; 96374; 96375; 99285; A9270; J1200; J2930; J3010; J3490; Q9967

== ENCOUNTER 2022-04-08 19:30 | Emergency (ER) | payer BC ==
[2022-04-08 22:07] LABS: ESTIMATED GFR 99 mL/min (>60)
[2022-04-08 23:57] VITALS: BP 114/77; PULSE 71
== END 2022-04-08 23:10 | disposition home or self-care (01) ==
LOC: JD.ED 19:30
DX: I48.92 Unspecified atrial flutter (principal); R73.03 Prediabetes; I48.91 Unspecified atrial fibrillation; E78.00 Pure hypercholesterolemia, unspecified; M19.90 Unspecified osteoarthritis, unspecified site; E03.9 Hypothyroidism, unspecified; E66.9 Obesity, unspecified; Z87.891 Personal history of nicotine dependence; Z91.018 Allergy to other foods; Z88.8 Allergy status to other drugs, medicaments and biological substances; Z91.013 Allergy to seafood; Z91.030 Bee allergy status; Z79.82 Long term (current) use of aspirin; Z79.899 Other long term (current) drug therapy
CPT/HCPCS: 36415; 71046; 71046-26; 80053; 83735; 83880; 84443; 84484; 85025; 85379; 85610; 85730; 93005; 99285

== ENCOUNTER 2022-04-14 13:49 | Emergency (ER) | payer BC ==
[2022-04-14] MEDS ORDERED: Sodium Chloride 0.9% 10 ML Syringe FLUSH PRN (15:09)
[2022-04-14] MEDS ORDERED: Codeine/Promethazine 10-6.25 MG/5 ML Syrup 5 ML UD Cup PO ONE (15:10)
[2022-04-14] MEDS ORDERED: Ketorolac 30 MG/ML SDV IVPUSH ONE (15:11)
[2022-04-14] MEDS ORDERED: Albuterol/Ipratropium 3.0-0.5 MG/3 ML Neb Soln NEB ONE ×2 (15:12→17:37)
[2022-04-14] MEDS ORDERED: Sodium Chloride 0.9% 1,000 ML IV SCH (15:15)
[2022-04-14] MEDS ORDERED: HYDROmorphone 0.5 MG/0.5 ML Syringe IVPUSH ONE (15:56)
[2022-04-14 16:08] LABS: ESTIMATED GFR 78 mL/min (>60)
[2022-04-14 19:41] VITALS: BP 116/65; PULSE 95
== END 2022-04-14 18:30 | disposition home or self-care (01) ==
LOC: JD.ED 13:49
DX: J11.1 Influenza due to unidentified influenza virus with other respiratory manifestations (principal); J06.9 Acute upper respiratory infection, unspecified; M79.10 Myalgia, unspecified site; E78.00 Pure hypercholesterolemia, unspecified; E66.9 Obesity, unspecified; Z68.30 Body mass index [BMI] 30.0-30.9, adult; Z91.018 Allergy to other foods; Z91.013 Allergy to seafood; Z91.041 Radiographic dye allergy status; Z91.030 Bee allergy status; Z79.82 Long term (current) use of aspirin; Z79.899 Other long term (current) drug therapy; Z90.49 Acquired absence of other specified parts of digestive tract
CPT/HCPCS: 36415; 71045; 71045-26; 80053; 85025; 86140; 96361; 96374; 96375; 99284-25; A9270-GY; J1170; J1885; J7030